=== PATIENT | female | born 2000 | race Caucasian/White ===

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

== ENCOUNTER 2022-04-17 03:49 | Emergency (ER) | payer OTHER, BC ==
[2022-04-17 03:57] VITALS: RESP 18
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
--- NOTE | 2022-04-17 05:16 | XR ---
EXAMINATION TYPE: XR ankle complete RT DATE OF EXAM: 04/17/2022 CLINICAL HISTORY: Pain after walking or twisting injury. History of neuropathy. TECHNIQUE: Frontal, lateral and oblique images of the right ankle are obtained. COMPARISON: Right ankle x-ray February 10, 2018. FINDINGS: There is no acute fracture/dislocation evident in the right ankle. The ankle mortise appe ars remains normal limits. The overlying soft tissue appears unremarkable. IMPRESSION: Unremarkable study. No significant change from prior.
[2022-04-17 05:36] VITALS: BP 78/62; PULSE 70; TEMP 97.8
== END 2022-04-17 06:30 | disposition home or self-care (01) ==
LOC: EC 03:49
DX: S93.401A Sprain of unspecified ligament of right ankle, initial encounter (principal); J45.909 Unspecified asthma, uncomplicated; F17.200 Nicotine dependence, unspecified, uncomplicated
CPT/HCPCS: 99283